=== PATIENT | male | born 1935 | race Caucasian/White ===

== ENCOUNTER 2019-09-17 12:09 | Inpatient (IN) | payer OTHER ==
[~2019-09-17] VITALS: Ht 162.6 cm; Wt 68.0 kg
--- NOTE | 2019-09-17 12:11 | NUR ---
Dr. Dailey at the bedside for MSE.
[2019-09-17] MEDS ORDERED: ACETAMINOPHEN ES 500 MG TABLET PO ONE (12:15)
[2019-09-17] MEDS ORDERED: IV NORMAL SALINE 1000 ML BAG IV ONE (12:15)
--- NOTE | 2019-09-17 12:30 | NUR ---
Pt went down for CT scan with radiologist.
[2019-09-17] MEDS ORDERED: ACETAMINOPHEN ES 500 MG TABLET ONE (12:36)
[2019-09-17 12:40] LABS: BASOPHILS # (AUTO) 0.1 K/uL (0.0-8.0); BASOPHILS % (AUTO) 0.3 % (0.0-2.0); EOSINOPHILS % (AUTO) 0.1 % (0.0-7.0); HEMOGLOBIN 15.3 g/dL (12.5-16.3); LYMPHOCYTES # (AUTO) 0.7 K/uL (20.0-40.0); MEAN CORPUSCULAR HEMOGLOBIN 29.9 uug (23.8-33.4); MEAN CORPUSCULAR HGB CONC 32 g/dL (32.5-36.3); MEAN CORPUSCULAR VOLUME 92.1 fL (73.0-96.2); MONOCYTES # (AUTO) 1.7 K/uL (2.0-10.0); MONOCYTES % (AUTO) 7.6 % (0.0-11.0); NEUTROPHILS # (AUTO) 19.3 K/uL (1.8-8.9); PLATELET COUNT (AUTO) 136 K/uL (152-348); RED BLOOD CELL COUNT(AUTO) 5.11 MIL/uL (4.06-5.63); WHITE BLOOD COUNT (AUTO) 21.7 K/uL (3.6-10.2)
--- NOTE | 2019-09-17 12:44 | NUR ---
BACK FROM CT, remains in stable condition.
[2019-09-17 12:56] LABS: ALANINE AMINOTRANSFERASE 27 U/L (16-63); ALKALINE PHOSPHATASE 75 U/L (50-136); ASPARTATE AMINOTRANSFERASE 17 U/L (15-37); BILIRUBIN,DIRECT 0.2 mg/dL (0.0-0.2); BILIRUBIN,TOTAL 0.7 mg/dL (0.2-1.0); CARBON DIOXIDE 28 mmol/L (21-32); CHLORIDE 99 mmol/L (98-107); CREATININE 1.5 mg/dL (0.6-1.3); GLUCOSE 421 mg/dL (74-106); TOTAL PROTEIN, SERUM 7.5 g/dL (6.4-8.2); UREA NITROGEN, BLOOD 22 mg/dL (7-18)
[2019-09-17] MEDS ORDERED: INSULIN REGULAR, HUMAN 300 UNIT/3 ML VIAL SQ ONE (13:00)
[2019-09-17] MEDS ORDERED: INSULIN REGULAR, HUMAN 300 UNIT/3 ML VIAL ONE (13:06)
[2019-09-17] MEDS ORDERED: PIPERACILLIN/TAZOBACTAM/D5W 50 ML IV ONE (13:06)
[2019-09-17] MEDS ORDERED: PIPERACILLIN SODIUM/TAZOBACTAM 3.375 G in IV DEXTROSE 5% 50 ML IV ONE (13:15)
--- NOTE | 2019-09-17 13:25 | NUR ---
S/W [employer] (Insurance) Nurse Ligia, provided updates regarding patient. According to her, they will call back.
[2019-09-17 13:29] LABS: *BILIRUBIN,URIN NEGATIVE (NEGATIVE); *BLOOD, URINE 2+ (NEGATIVE); *CLARITY,URINE SLIGHTLY CLOUDY (CLEAR); *COLOR,URINE YELLOW (YELLOW); *KETONES,URINE NEGATIVE (NEGATIVE); LEUKOCYTE ESTERASE ,URINE NEGATIVE (NEGATIVE); NITRITE, URINE NEGATIVE (NEGATIVE); UGLUCOSE 2+ (NEGATIVE)
[2019-09-17 13:38] LABS: BACTERIA,URINE MANY /HPF (NONE SEEN); RBC,URINE 20-50 /HPF (0-3)
[2019-09-17 13:39] LABS: SQUAMOUS EPITHELIAL CELL,UR MODERATE /HPF (NONE SEEN); URINE AMORPHOUS URATE MANY /HPF; WBC,URINE TNTC /HPF (0-3)
--- NOTE | 2019-09-17 14:02 | NUR ---
Faxed paperwork requested by Ligia Aguilera to [facility] fax number: [phone]. Confirmation received from fax. Pt stable at this time. Resting, fall precautions maintained. Fluids still ongoing.
--- NOTE | 2019-09-17 16:58 | NUR ---
DR GALVEZ SPOKE WITH [facility] ADMITTING VIOLA GUARDADO DNP. ADMITTING TO TELE DX: [id number]. CALLED TELE NURSE FOR REPORT, WILL CALL BACK.
[2019-09-17 17:30] VITALS: BP 128/80
--- NOTE | 2019-09-17 17:31 | NUR ---
REPORT GIVEN TO KARLI ISSA RN.
[2019-09-17] MEDS ORDERED: Z GUARD REMEDY PASTE 57 GM TUBE TOP PRN (19:15)
[2019-09-17] MEDS ORDERED: ACETAMINOPHEN 325 MG TABLET PO PRN (19:15)
[2019-09-17] MEDS ORDERED: FLUCONAZOLE 100 MG TABLET PO SCH (19:15)
[2019-09-17] MEDS ORDERED: DEXTROSE 50% 50 ML DISP.SYRIN IV PRN (19:15)
[2019-09-17] MEDS ORDERED: MAGNESIUM HYDROXIDE 30 ML LIQUID UDC PO PRN (19:15)
[2019-09-17] MEDS ORDERED: ONDANSETRON 4 MG/2 ML VIAL IV PRN (19:15)
--- NOTE | 2019-09-17 19:30 | NUR ---
Received patient resting in bed, no signs of acute distress noted. Patient is A/Ox1. Denies pain or SOB. Vitals WNL. sinus rhythm in the 90s on the monitor. Heplock on the right AC is intact and patent. Safety measures initiated. Bed is low and locked, call light within reach, bed alarm on. Will continue to monitor.
[2019-09-17] MEDS: IV NS 1000 ML 1,000 ML IV PRN (19:58)
[2019-09-17 20:00] VITALS: BP 130/69
[2019-09-17] MEDS: MEMANTINE HCL 10 MG TABLET PO SCH (20:49)
[2019-09-17] MEDS: DONEPEZIL 10 MG TABLET PO SCH (20:49)
[2019-09-17] MEDS: CEFTRIAXONE 1 G in IV DEXTROSE 5% 50 ML IV SCH (20:49)
[2019-09-17] MEDS: APIXABAN 5 MG TABLET PO SCH (20:49)
[2019-09-17] MEDS: ATORVASTATIN 10 MG TABLET PO SCH (20:49)
[2019-09-17] MEDS: BLOOD SUGAR DIAGNOSTIC 1 EACH STRIP VI SCH (21:02)
[2019-09-17] MEDS: INSULIN REGULAR, HUMAN 300 UNIT/3 ML VIAL SQ PRN (21:06)
[2019-09-18] VITALS: BP 120/61
[2019-09-18 04:00] VITALS: BP 123/61
[2019-09-18] MEDS: PANTOPRAZOLE SODIUM 40 MG TABLET.DR PO SCH ×2 (06:52→06:58)
--- NOTE | 2019-09-18 06:55 | NUR ---
patient slept well, no signs of acute distress noted. All medication given as ordered, tolerated well. IVF running on the right AC, no s/s of infection or infiltration. Safety measures given. Will endorse to next shfit.
[2019-09-18 06:57] LABS: BILIRUBIN,TOTAL 0.5 mg/dL (0.2-1.0); CREATININE 1.1 mg/dL (0.6-1.3); PHOSPHOROUS 2.8 mg/dL (2.5-4.9); POTASSIUM 3.9 mmol/L (3.5-5.1); TOTAL PROTEIN, SERUM 5.8 g/dL (6.4-8.2)
[2019-09-18] MEDS: BLOOD SUGAR DIAGNOSTIC 1 EACH STRIP VI SCH ×4 (06:59→20:14)
[2019-09-18 07:03] LABS: LYMPHOCYTES # (AUTO) 0.8 K/uL (20.0-40.0); MONOCYTES # (AUTO) 1.3 K/uL (2.0-10.0)
[2019-09-18 07:05] LABS: THYROID STIMULATING HORMONE 1.907 mIU/mL (0.358-3.740)
[2019-09-18 07:18] LABS: BASOPHILS % (AUTO) 0.2 % (0.0-2.0); LYMPHOCYTES % (AUTO) 4.2 % (20.5-51.5); MEAN CORPUSCULAR HEMOGLOBIN 29.7 uug (23.8-33.4); MEAN CORPUSCULAR HGB CONC 33 g/dL (32.5-36.3); MEAN CORPUSCULAR VOLUME 90.9 fL (73.0-96.2); MONOCYTES % (AUTO) 7.3 % (0.0-11.0); NEUTROPHILS # (AUTO) 16.2 K/uL (1.8-8.9); NEUTROPHILS % (AUTO) 88.3 % (38.5-71.5); PLATELET COUNT (AUTO) 111 K/uL (152-348); RED BLOOD CELL COUNT(AUTO) 4.32 MIL/uL (4.06-5.63); WHITE BLOOD COUNT (AUTO) 18.4 K/uL (3.6-10.2)
[2019-09-18 07:19] LABS: HEMATOCRIT 39.3 % (36.7-47.1); HEMOGLOBIN 12.8 g/dL (12.5-16.3)
--- NOTE | 2019-09-18 08:00 | NUR ---
received pt. resting in bed alert oriented to self. pt. denies pain/ discomfort. pt. denies sob/ difficulty breathing. iv in R ac 20 gauge intact patent running prescribed fluid. safety measures in place. call light within reach. will continue to monitor pt.
[2019-09-18] MEDS: APIXABAN 5 MG TABLET PO SCH ×2 (08:07→17:12)
[2019-09-18] MEDS: INSULIN REGULAR, HUMAN 300 UNIT/3 ML VIAL SQ PRN ×3 (08:08→17:16)
[2019-09-18] MEDS: MEMANTINE HCL 10 MG TABLET PO SCH ×2 (08:11→20:17)
[2019-09-18] MEDS: IV NS 1000 ML 1,000 ML IV PRN (08:11)
[2019-09-18] MEDS: VALSARTAN 80 MG TABLET PO SCH (08:12)
[2019-09-18] MEDS: METOPROLOL SUCCINATE XL 25 MG TAB.SR.24H PO SCH (08:12)
--- NOTE | 2019-09-18 10:58 | NUR ---
pt. resting comfortably. Swallow evalve done and cleared. PT evalve done and will continue to do PT with pt. daily.
[2019-09-18 11:49] VITALS: BP 134/64
[2019-09-18] MEDS: MAGNESIUM SULFATE/D5W 100 ML IV SCH ×4 (13:16→17:10)
[2019-09-18 16:00] VITALS: BP 116/56
--- NOTE | 2019-09-18 19:30 | NUR ---
Received patient awake and alert. Patient shows no signs or symptoms of distress at this time. Bed set to lowest position. Call light within reach. Will continue to monitor patient.
[2019-09-18 19:49] VITALS: BP 131/71
[2019-09-18] MEDS: CEFTRIAXONE 1 G in IV DEXTROSE 5% 50 ML IV SCH (19:56)
[2019-09-18] MEDS: DONEPEZIL 10 MG TABLET PO SCH (20:16)
[2019-09-18] MEDS: ATORVASTATIN 10 MG TABLET PO SCH (20:17)
[2019-09-18] MEDS: INSULIN REGULAR, HUMAN 300 UNITS/3 ML VIAL SQ PRN (20:19)
[2019-09-19] VITALS: BP 137/64
[2019-09-19 04:00] VITALS: BP 153/84
[2019-09-19] MEDS: IV NS 1000 ML 1,000 ML IV PRN ×2 (04:21→20:54)
[2019-09-19] MEDS: PANTOPRAZOLE SODIUM 40 MG TABLET.DR PO SCH (06:05)
[2019-09-19 06:14] LABS: BASOPHILS % (AUTO) 0.3 % (0.0-2.0); EOSINOPHILS # (AUTO) 0.1 K/uL (0.0-0.7); EOSINOPHILS % (AUTO) 0.7 % (0.0-7.0); HEMATOCRIT 38.5 % (36.7-47.1); HEMOGLOBIN 12.6 g/dL (12.5-16.3); LYMPHOCYTES # (AUTO) 0.9 K/uL (20.0-40.0); LYMPHOCYTES % (AUTO) 5.2 % (20.5-51.5); MEAN CORPUSCULAR HEMOGLOBIN 29.8 uug (23.8-33.4); MEAN CORPUSCULAR HGB CONC 33 g/dL (32.5-36.3); MEAN CORPUSCULAR VOLUME 90.8 fL (73.0-96.2); MONOCYTES # (AUTO) 1.5 K/uL (2.0-10.0); NEUTROPHILS # (AUTO) 14.4 K/uL (1.8-8.9); NEUTROPHILS % (AUTO) 84.8 % (38.5-71.5); PLATELET COUNT (AUTO) 118 K/uL (152-348); RED BLOOD CELL COUNT(AUTO) 4.24 MIL/uL (4.06-5.63)
[2019-09-19 06:31] LABS: MAGNESIUM 1.9 mg/dL (1.8-2.4); PHOSPHOROUS 2.3 mg/dL (2.5-4.9); POTASSIUM 3.4 mmol/L (3.5-5.1)
[2019-09-19] MEDS: BLOOD SUGAR DIAGNOSTIC 1 EACH STRIP VI SCH ×5 (06:40→20:26)
--- NOTE | 2019-09-19 07:16 | NUR ---
Patient shows no signs or symptoms of distress at this time. Resting comfortably in bed. Patient is NSR with v-pacing on monitor. Endorsed patient to AM nurse in stable condition.
--- NOTE | 2019-09-19 07:30 | NUR ---
Awake, alert, on moderate high back rest. IVF infusing. Bed alarm on
[2019-09-19] MEDS: MEMANTINE HCL 10 MG TABLET PO SCH ×2 (09:23→20:28)
[2019-09-19] MEDS: VALSARTAN 80 MG TABLET PO SCH (09:23)
[2019-09-19] MEDS: APIXABAN 5 MG TABLET PO SCH ×2 (09:24→17:16)
[2019-09-19] MEDS: METOPROLOL SUCCINATE XL 25 MG TAB.SR.24H PO SCH (09:24)
[2019-09-19] MEDS: INSULIN REGULAR, HUMAN 300 UNIT/3 ML VIAL SQ PRN ×4 (09:26→20:27)
--- NOTE | 2019-09-19 10:30 | NUR ---
With BM incontinent, bed bath given. Repositioned in bed comfortably. Bed alarm on.
[2019-09-19 11:00] VITALS: BP 121/85
[2019-09-19] MEDS ORDERED: POTASSIUM CHLORIDE 20 MEQ TAB.PRT.SR PO ONE (13:15)
--- NOTE | 2019-09-19 14:00 | NUR ---
Attempts to get out of bed. Reoriented. Incontinence care done. Reposition in bed comfortably. Bed alarm on.
[2019-09-19] MEDS ORDERED: NEUTRA PHOS PACKET PO ONE (15:30)
[2019-09-19 16:01] VITALS: BP 131/89
--- NOTE | 2019-09-19 17:00 | NUR ---
Got out of bed, assisted to the bathroom then back to bed. Bed alarm on
--- NOTE | 2019-09-19 20:00 | NUR ---
PATIENT AWAKE IN BED. A/O X3. DENIES ANY PAIN OR DISCOMFORT. VS WNL. ON TELE V-PACING UNDERLYING SR WITH OCCASIONAL PVC'S. IVF INFUSING WELL TO RIGHT FA #20 GAUGE. BED ALARM ON. CALL LIGHT IN REACH. WILL CONTINUE TO MONITOR AND ASSESS.
[2019-09-19] MEDS: CEFTRIAXONE 1 G in IV DEXTROSE 5% 50 ML IV SCH (20:14)
[2019-09-19] MEDS: DONEPEZIL 10 MG TABLET PO SCH (20:27)
[2019-09-19] MEDS: ATORVASTATIN 10 MG TABLET PO SCH (20:27)
[2019-09-19 21:00] VITALS: BP 156/75
[2019-09-20 04:39] VITALS: BP 123/59
--- NOTE | 2019-09-20 05:51 | NUR ---
PATIENT AWAKE IN BED. DENIES ANY PAIN OR DISCOMFORT. VS WNL. ON TELE V-PACING UNDERLYING SR WITH OCCASIONAL PVC'S. IVF INFUSING WELL. BED ALARM ON. CALL LIGHT IN REACH. WILL CONTINUE TO MONITOR AND ASSESS.
[2019-09-20] MEDS: PANTOPRAZOLE SODIUM 40 MG TABLET.DR PO SCH (06:23)
[2019-09-20] MEDS: BLOOD SUGAR DIAGNOSTIC 1 EACH STRIP VI SCH ×4 (06:37→20:30)
[2019-09-20 06:44] LABS: CREATININE 0.9 mg/dL (0.6-1.3); MAGNESIUM 1.7 mg/dL (1.8-2.4); PHOSPHOROUS 2.6 mg/dL (2.5-4.9); POTASSIUM 3.5 mmol/L (3.5-5.1)
[2019-09-20 06:58] LABS: BASOPHILS % (AUTO) 0.4 % (0.0-2.0); EOSINOPHILS # (AUTO) 0.2 K/uL (0.0-0.7); EOSINOPHILS % (AUTO) 2.6 % (0.0-7.0); HEMOGLOBIN 11.9 g/dL (12.5-16.3); LYMPHOCYTES % (AUTO) 10.1 % (20.5-51.5); MEAN CORPUSCULAR HEMOGLOBIN 30.3 uug (23.8-33.4); MEAN CORPUSCULAR HGB CONC 33 g/dL (32.5-36.3); MEAN CORPUSCULAR VOLUME 91.5 fL (73.0-96.2); MONOCYTES # (AUTO) 1.1 K/uL (2.0-10.0); MONOCYTES % (AUTO) 11.4 % (0.0-11.0); NEUTROPHILS # (AUTO) 7.4 K/uL (1.8-8.9); NEUTROPHILS % (AUTO) 75.5 % (38.5-71.5); PLATELET COUNT (AUTO) 129 K/uL (152-348); RED BLOOD CELL COUNT(AUTO) 3.94 MIL/uL (4.06-5.63)
[2019-09-20 07:02] LABS: WHITE BLOOD COUNT (AUTO) 9.8 K/uL (3.6-10.2)
[2019-09-20] MEDS: VALSARTAN 80 MG TABLET PO SCH (08:42)
[2019-09-20] MEDS: METOPROLOL SUCCINATE XL 25 MG TAB.SR.24H PO SCH (08:42)
[2019-09-20] MEDS: MEMANTINE HCL 10 MG TABLET PO SCH ×2 (08:42→20:30)
[2019-09-20] MEDS: APIXABAN 5 MG TABLET PO SCH ×2 (08:46→17:12)
[2019-09-20] MEDS: INSULIN REGULAR, HUMAN 300 UNIT/3 ML VIAL SQ PRN ×3 (08:48→17:13)
[2019-09-20 09:05] LABS: BAND % (MANUAL) 4 % (0-10); EOSINOPHILS % (MANUAL) 3 % (0-8); LYMPHOCYTES % (MANUAL) 11 % (20-40); MONOCYTES % (MANUAL) 12 % (2-10); NEUTROPHILS % (MANUAL) 70 % (42-75)
[2019-09-20] MEDS: IV NS 1000 ML 1,000 ML IV PRN (10:49)
[2019-09-20 11:18] VITALS: BP 123/63
[2019-09-20] MEDS ORDERED: MAGNESIUM OXIDE 400 MG TABLET PO ONE (13:30)
[2019-09-20] MEDS: CEphaleXIN 250 MG CAPSULE PO SCH ×2 (14:26→21:01)
[2019-09-20 15:14] VITALS: BP 130/60
--- NOTE | 2019-09-20 18:14 | NUR ---
Patient calm and comfortable through out shift with no signs of distress; patient medication compliant ; patient had x1 bowel movement ; patient to be discharged today ; [facility] expressed they could not receive patient until tomorrow at 9am; information relayed to attending md; md agreed with discharge tomorrow. patient with stable vital signs; report relayed to oncoming nurse.
--- NOTE | 2019-09-20 19:20 | NUR ---
RECEIVED PATIENT LYING IN BED. AAOX2-3. IN NO ACUTE DISTRESS. DENIES ANY PAIN OR SOB. A. FLUTTER ON TELE AT 85/MIN. IV SITE ON RIGHT FA INTACT AND PATENT. IVF INFUSING. SAFETY MEASURE INITIATED AND CALL GRIJALVA WITHIN REACHED. Addendum: 09/20/19 at 2126 by CHARLES BAILEY RN PATIENT NOT ON TELE.
[2019-09-20] MEDS: ATORVASTATIN 10 MG TABLET PO SCH (20:30)
[2019-09-20] MEDS: DONEPEZIL 10 MG TABLET PO SCH (20:30)
[2019-09-20] MEDS: INSULIN REGULAR, HUMAN 300 UNITS/3 ML VIAL SQ PRN (20:31)
[2019-09-20 21:16] VITALS: BP 143/87
[2019-09-21] MEDS: IV NS 1000 ML 1,000 ML IV PRN (00:10)
[2019-09-21 05:38] VITALS: BP 149/65
[2019-09-21] MEDS: PANTOPRAZOLE SODIUM 40 MG TABLET.DR PO SCH (06:04)
[2019-09-21] MEDS: CEphaleXIN 250 MG CAPSULE PO SCH (06:04)
--- NOTE | 2019-09-21 06:15 | NUR ---
SLEPT WELL LAST NIGHT. IN NO ACUTE DISTRESS. DENIES ANY PAIN OR SOB. IV SITE ON RIGHT FA INTACT AND PATENT. IVF INFUSING. NEEDS ASSESSED AND ATTENDED TO. SAFETY MEASURE MAINTAINED AND CALL GRIJALVA WITHIN REACHED.
[2019-09-21] MEDS: BLOOD SUGAR DIAGNOSTIC 1 EACH STRIP VI SCH (06:41)
[2019-09-21 07:20] LABS: BASOPHILS % (AUTO) 0.5 % (0.0-2.0); EOSINOPHILS # (AUTO) 0.4 K/uL (0.0-0.7); EOSINOPHILS % (AUTO) 4.4 % (0.0-7.0); HEMATOCRIT 35.4 % (36.7-47.1); HEMOGLOBIN 11.8 g/dL (12.5-16.3); LYMPHOCYTES # (AUTO) 1.3 K/uL (20.0-40.0); LYMPHOCYTES % (AUTO) 14.7 % (20.5-51.5); MEAN CORPUSCULAR HEMOGLOBIN 30.2 uug (23.8-33.4); MEAN CORPUSCULAR HGB CONC 33 g/dL (32.5-36.3); MEAN CORPUSCULAR VOLUME 90.7 fL (73.0-96.2); MONOCYTES # (AUTO) 1.1 K/uL (2.0-10.0); MONOCYTES % (AUTO) 12.8 % (0.0-11.0); NEUTROPHILS % (AUTO) 67.6 % (38.5-71.5); PLATELET COUNT (AUTO) 159 K/uL (152-348); WHITE BLOOD COUNT (AUTO) 8.8 K/uL (3.6-10.2)
[2019-09-21 08:06] LABS: CREATININE 0.8 mg/dL (0.6-1.3); MAGNESIUM 1.5 mg/dL (1.8-2.4); PHOSPHOROUS 2.9 mg/dL (2.5-4.9); POTASSIUM 3.4 mmol/L (3.5-5.1)
[2019-09-21] MEDS: APIXABAN 5 MG TABLET PO SCH (08:32)
[2019-09-21] MEDS: INSULIN REGULAR, HUMAN 300 UNIT/3 ML VIAL SQ PRN (08:34)
[2019-09-21] MEDS: METOPROLOL SUCCINATE XL 25 MG TAB.SR.24H PO SCH (08:37)
[2019-09-21] MEDS: MEMANTINE HCL 10 MG TABLET PO SCH (08:37)
[2019-09-21 08:38] VITALS: BP 109/49
[2019-09-21] MEDS: VALSARTAN 80 MG TABLET PO SCH (08:38)
[2019-09-21 09:05] LABS: BAND % (MANUAL) 1 % (0-10); BASOPHILS % (MANUAL) 1 % (0-2); EOSINOPHILS % (MANUAL) 6 % (0-8); LYMPHOCYTES % (MANUAL) 16 % (20-40); METAMYELOCYTES % 1 % (0-1); MONOCYTES % (MANUAL) 9 % (2-10); MYELOCYTES % 2 % (0-0); NEUTROPHILS % (MANUAL) 64 % (42-75)
--- NOTE | 2019-09-21 09:15 | NUR ---
PATIENT LEFT CALM AND COMFORTABLE TO [facility] WITH STABLE VITAL SIGNS ; PATIENT MEDICATION COMPLIANT; PATIENT LEFT WITH BELONGING AND VALUABLES.
== END 2019-09-21 09:15 | DRG 871 ==
LOC: ER 12:09 → TELE3 17:03 → MEDSURG3 09-20 12:35
PROVIDERS: ADMIT Nurse Practitioner Acute Care; ATTEND Nurse Practitioner Acute Care
DX: A41.9 Sepsis, unspecified organism (principal); N17.0 Acute kidney failure with tubular necrosis; I50.33 Acute on chronic diastolic (congestive) heart failure; D68.69 Other thrombophilia; E87.2 Acidosis; E11.65 Type 2 diabetes mellitus with hyperglycemia; I11.0 Hypertensive heart disease with heart failure; E78.5 Hyperlipidemia, unspecified; E83.42 Hypomagnesemia; E86.9 Volume depletion, unspecified; E87.6 Hypokalemia; K21.9 Gastro-esophageal reflux disease without esophagitis; F03.90 Unspecified dementia, unspecified severity, without behavioral disturbance, psychotic disturbance, mood disturbance, and anxiety; D69.6 Thrombocytopenia, unspecified; Z79.84 Long term (current) use of oral hypoglycemic drugs; R40.2413 Glasgow coma scale score 13-15, at hospital admission; B96.20 Unspecified Escherichia coli [E. coli] as the cause of diseases classified elsewhere; N30.91 Cystitis, unspecified with hematuria
CPT/HCPCS: 36415; 70030-TC; 70450; 71045; 83550; 83605; 83735; 84100; 84443; 85025; 85730; 87040; 87077; 87086; 87400; 93005; 93307; A4663; A9150; C1758; G0378; J0696; J1815; J2543; J3475; J7030; J7040; J7060